=== PATIENT | female | born 1985 | race African-American/Black ===

== ENCOUNTER 2017-03-09 15:12 | Emergency (ER) | payer OTHER ==
--- NOTE | ~2017-03-09 | CR93 ---
[facility] A Service of [facility] / [facility] RADIOLOGY TEXT RESULTS PATIENT: LEWIS VELA LOCATION: CFTX : 85 UNIT #: [id number] AGE: [address]: Dixie Poole SEX: F ORDER DR: [id number] [facility]. [place], [place] [address] [id number] E MR#: [id number] #: [id number] NAME: LEWIS VELA. : 1985 SEX: F STUDY DATE/TIME: 03/09/2017 16:40 UNIT: [facility] ROOM: STUDY DESCRIPTION: CR Elbow Min 3 Views Lt Attending Physician: Dixie Poole Pa-C Ordering Physician: [facility] Primary Care Physician: Primary Care Physician No MEDICAL IMAGING REPORT This report is preliminary unless electronic signature is present EXAM Left elbow INDICATIONS Left elbow pain for 2 days. No known injury. FINDINGS Three views of the left elbow without comparison. There is no acute fracture, dislocation, or elbow effusion. No foreign body. IMPRESSION Negative left elbow Dictated by... Cristhian Rodas M.D. THIS IS AN ELECTRONICALLY VERIFIED REPORT Cristhian Rodas M.D. at 03/10/2017 10:48 AM BRENDON/wood TD: 03/10/2017 07:19 JOB #: [id number] MEDICAL IMAGING REPORT Page 1 of 1 COPY
[~2017-03-09 15:12] MED LIST: ACETAMINOPHEN PO; BACTRIM DS TABL1 TAB PO; DOXYCYCLINE PO; FIORINAL CAPSUL1 CAP PO; FLEXERIL PO; FLEXERIL10 MG PO; IBUPROFEN PO; IBUPROFEN800 MG PO; KETOPROFEN PO; LORTAB 10-5001 EACH PO; NO MEDICATIONS; ORUDIS75 M1 DOB; ORUDIS75 M1 PO; PEN-VEE K PO; PHENERGAN PO; TRAMADOL HCL50 M2 PO; TYLENOL #3 PO; ULTRAM PO; ZITHROMAX PO
== END 2017-03-09 18:04 | disposition home or self-care (01) ==
LOC: CED 15:12 → CFTX 15:12
DX: M75.92 Shoulder lesion, unspecified, left shoulder (principal); J45.909 Unspecified asthma, uncomplicated; F17.200 Nicotine dependence, unspecified, uncomplicated; G43.909 Migraine, unspecified, not intractable, without status migrainosus
CPT/HCPCS: 29260; 73080; 99283